=== PATIENT | male | born 1945 | race Caucasian/White ===

== ENCOUNTER 2017-10-30 07:38 | Day surgery (SDC) | payer BC, MEDICARE ==
[~2017-10-30] VITALS: Ht 170.2 cm; Wt 88.5 kg
[~2017-10-30 07:38] MED LIST: ALBU90OI INH; ALBU90OI6 INH; ASPI81CH; ATEN100; ATEN100 PO; Aspirin EC81 MG PO; CHOL10002 PO; CRUTCH4 XX; FLUT1DIS5 INH; GLIP10 PO; GLIP10ER PO; GLUC500 PO; Keflex500 MG PO; Levaquin750 MG PO; METF500 PO; METF500C PO; Norco 5-325 Ta1 EACH PO; PIOG15 PO; Prednisone20 MG PO; SERT100 PO; SIMV10 PO; TAMS.4ER PO; TIOT18 INH; Zoloft100 MG PO
== END 2017-10-30 09:48 | disposition home or self-care (01) ==
LOC: ORSCMMR 07:38 → ORD 08:30 → ORSCMMR 08:30
PROVIDERS: Internal Medicine Gastroenterology
PROC: 0DBL8ZX Excision of Transverse Colon, Via Natural or Artificial Opening Endoscopic, Diagnostic (ICD-10-PCS; principal; 2017-10-30 08:30)
PROC: 0DBK8ZX Excision of Ascending Colon, Via Natural or Artificial Opening Endoscopic, Diagnostic (ICD-10-PCS; principal; 2017-10-30 08:30)
PROC: 0DBB8ZX Excision of Ileum, Via Natural or Artificial Opening Endoscopic, Diagnostic (ICD-10-PCS; principal; 2017-10-30 08:30)
PROC: 0DBE8ZX Excision of Large Intestine, Via Natural or Artificial Opening Endoscopic, Diagnostic (ICD-10-PCS; principal; 2017-10-30 08:30)
PROC: 0DBN8ZX Excision of Sigmoid Colon, Via Natural or Artificial Opening Endoscopic, Diagnostic (ICD-10-PCS; principal; 2017-10-30 08:30)
DX: R19.7 Diarrhea, unspecified (principal); D12.3 Benign neoplasm of transverse colon; D12.2 Benign neoplasm of ascending colon; K63.5 Polyp of colon; K62.1 Rectal polyp; K57.30 Diverticulosis of large intestine without perforation or abscess without bleeding; E11.9 Type 2 diabetes mellitus without complications; J44.9 Chronic obstructive pulmonary disease, unspecified; G47.33 Obstructive sleep apnea (adult) (pediatric); E78.00 Pure hypercholesterolemia, unspecified; F32.9 Major depressive disorder, single episode, unspecified; Z79.899 Other long term (current) drug therapy; Z79.82 Long term (current) use of aspirin; Z87.891 Personal history of nicotine dependence; I10 Essential (primary) hypertension
CPT/HCPCS: 82947; 88305; J2250; J3010; J7120

== ENCOUNTER 2020-05-07 10:43 | Emergency (ER) | payer BC, MEDICARE ==
[~2020-05-07] VITALS: Ht 167.6 cm; Wt 88.0 kg
[2020-05-07 11:41] LABS: BASOPHILS ABSOLUTE AUTO 0.03 K/mm3 (0.00-0.23); BASOPHILS PERCENT AUTO 1 % (0-2); EOSINOPHILS ABSOLUTE AUTO 0.06 K/mm3 (0.00-0.68); EOSINOPHILS PERCENT AUTO 1 % (0-6); Hematocrit 37.7 % (37.0-53.0); Hemoglobin 12.4 g/dL (13.5-17.5); IMMATURE GRAN ABSOLUTE AUTO 0.01 K/mm3 (0.00-0.10); IMMATURE GRAN PERCENT AUTO 0 % (0-1); LYMPHOCYTES ABSOLUTE AUTO 0.92 K/mm3 (0.84-5.20); LYMPHOCYTES PERCENT AUTO 19 % (21-46); MONOCYTES ABSOLUTE AUTO 0.38 K/mm3 (0.16-1.47); MONOCYTES PERCENT AUTO 8 % (4-13); Mean Corpuscular HGB Conc 32.9 g/dL (31.5-36.5); Mean Corpuscular Volume 91 fL (80-100); Mean Platelet Volume 9.2 fL (9.1-12.4); NEUTROPHILS ABSOLUTE AUTO 3.47 K/mm3 (1.96-9.15); NEUTROPHILS PERCENT AUTO 71 % (41-73); Platelet Count 205 K/mm3 (150-400); RDW Coefficient Variation 13.5 % (11.7-14.2); RDW Standard Deviation 45.4 fL (35.1-46.3); Red Blood Cell Count 4.14 M/mm3 (4.30-5.90); White Blood Cell Count 4.87 K/mm3 (4.00-11.30)
[2020-05-07 11:57] LABS: Alanine Aminotransfer (ALT/SGP 21 U/L (12-78); Albumin, Blood 3.9 g/dL (3.4-5.0); Albumin/Globulin Ratio 1.2 (0.8-1.8); Alk Phos 60 U/L (50-136); Anion Gap 5 mmol/L (6-16); Aspartate Aminotrans (AST/SGOT 14 U/L (12-37); Bilirubin, Total 0.4 mg/dL (0.1-1.0); Blood Urea Nitrogen 18 mg/dL (8-24); Bun/Creatinine Ratio 20.5 (12.0-20.0); CO2, Blood 28 mmol/L (21-32); Calcium, Blood 9.1 mg/dL (8.5-10.1); Chloride, Blood 107 mmol/L (98-108); Creatinine, Blood 0.88 mg/dL (0.60-1.20); Globulin, Blood 3.2 g/dL (2.2-4.0); Glomerular Filtration Rate >60 (60-); Glucose, Blood 149 mg/dL (70-99); Potassium, Blood 4.2 mmol/L (3.5-5.5); Sodium, Blood 140 mmol/L (136-145); Total Protein, Blood 7.1 g/dL (6.4-8.2)
[2020-05-07 12:25] LABS: Source, Urine Clean Catch
[2020-05-07 12:42] LABS: Appearance, Urine Clear (Clear); Color, Urine Yellow (P-Yellow); Leukocyte Esterase, Urine Neg (Neg); Nitrite, Urine Neg (Neg); pH, Urine 6.5 (5.0-8.0)
[2020-05-07 12:43] LABS: Bacteria Not Seen /hpf; Bilirubin, Urine Neg (Neg); Blood, Urine 1+ (Neg); Glucose Qualitative, Urine Neg (Neg); Ketones, Urine Neg (Neg); Protein, Urine 2+ (Neg); Red Blood Cells, Urine 0-2 /hpf (0-2); Squamous Epithelial Cells Rare /hpf (Few); Urobilinogen, Urine NORM (Normal); White Blood Cells, Urine Not Seen /hpf (0-5)
[2020-05-07] MEDS ORDERED: Plavix75 MG PO (13:37)
== END 2020-05-07 14:00 | disposition home or self-care (01) ==
LOC: ER 10:43
PROVIDERS: Physician Assistant
DX: G45.9 Transient cerebral ischemic attack, unspecified (principal); J44.9 Chronic obstructive pulmonary disease, unspecified; E11.9 Type 2 diabetes mellitus without complications; F32.9 Major depressive disorder, single episode, unspecified; I10 Essential (primary) hypertension; Z86.73 Personal history of transient ischemic attack (TIA), and cerebral infarction without residual deficits; Z79.84 Long term (current) use of oral hypoglycemic drugs; Z79.899 Other long term (current) drug therapy; Z91.041 Radiographic dye allergy status; Z79.82 Long term (current) use of aspirin; Z87.891 Personal history of nicotine dependence
CPT/HCPCS: 36415; 70450; 80053; 81001; 85025; 93005; 93010; 99285-25

== ENCOUNTER 2021-02-22 20:30 | Emergency (ER) | payer BC, MEDICARE ==
[~2021-02-22] VITALS: Ht 170.2 cm; Wt 88.5 kg
[~2021-02-22 20:30] MED LIST changes: +Plavix75 MG PO
[2021-02-22 21:51] LABS: BASOPHILS ABSOLUTE AUTO 0.04 K/mm3 (0.00-0.23); BASOPHILS PERCENT AUTO 1 % (0-2); EOSINOPHILS PERCENT AUTO 2 % (0-6); Hematocrit 36.1 % (37.0-53.0); IMMATURE GRAN ABSOLUTE AUTO 0.02 K/mm3 (0.00-0.10); IMMATURE GRAN PERCENT AUTO 0 % (0-1); LYMPHOCYTES ABSOLUTE AUTO 0.94 K/mm3 (0.84-5.20); LYMPHOCYTES PERCENT AUTO 14 % (21-46); MONOCYTES ABSOLUTE AUTO 0.51 K/mm3 (0.16-1.47); MONOCYTES PERCENT AUTO 8 % (4-13); Mean Corpuscular HGB 30.4 pg (26.0-34.0); Mean Corpuscular HGB Conc 33.2 g/dL (31.5-36.5); Mean Corpuscular Volume 91 fL (80-100); NEUTROPHILS ABSOLUTE AUTO 5.18 K/mm3 (1.96-9.15); NEUTROPHILS PERCENT AUTO 76 % (41-73); Platelet Count 196 K/mm3 (150-400); RDW Coefficient Variation 12.8 % (11.7-14.2); Red Blood Cell Count 3.95 M/mm3 (4.30-5.90); White Blood Cell Count 6.79 K/mm3 (4.00-11.30)
[2021-02-22 22:34] LABS: Alanine Aminotransfer (ALT/SGP 22 U/L (12-78); Albumin, Blood 3.7 g/dL (3.4-5.0); Albumin/Globulin Ratio 1.2 (0.8-1.8); Alk Phos 72 U/L (50-136); Anion Gap 4 mmol/L (6-16); Aspartate Aminotrans (AST/SGOT 15 U/L (12-37); Bilirubin, Total 0.4 mg/dL (0.1-1.0); Blood Urea Nitrogen 19 mg/dL (8-24); Bun/Creatinine Ratio 20.9 (12.0-20.0); CO2, Blood 28 mmol/L (21-32); Calcium, Blood 9.3 mg/dL (8.5-10.1); Chloride, Blood 109 mmol/L (98-108); Creatinine, Blood 0.91 mg/dL (0.60-1.20); Globulin, Blood 3.1 g/dL (2.2-4.0); Glomerular Filtration Rate >60 (60-); Glucose, Blood 111 mg/dL (70-99); Sodium, Blood 141 mmol/L (136-145); Total Protein, Blood 6.8 g/dL (6.4-8.2); Troponin I <0.015 ng/mL (0.000-0.040)
[2021-02-23] MEDS ORDERED: ZOLOFT100 M6 PO (01:11)
[2021-02-23] MEDS ORDERED: Zocor20 MG PO (01:12)
[2021-02-23] MEDS ORDERED: ANORO ELLIPTA1 EACH (01:13)
[2021-02-23] MEDS ORDERED: LOSA50 PO (01:13)
[2021-02-23] MEDS ORDERED: TRULICITY1.5 MG/0.1 SC (01:14)
[2021-02-23] MEDS ORDERED: ALBU90OI INH (03:13)
== END 2021-02-23 04:33 | disposition home or self-care (01) ==
LOC: ER 20:30
PROVIDERS: Physician Assistant
DX: J44.1 Chronic obstructive pulmonary disease with (acute) exacerbation (principal); E11.9 Type 2 diabetes mellitus without complications; I10 Essential (primary) hypertension; Z99.89 Dependence on other enabling machines and devices; Z87.891 Personal history of nicotine dependence; Z91.041 Radiographic dye allergy status; Z79.899 Other long term (current) drug therapy; Z79.84 Long term (current) use of oral hypoglycemic drugs; Z79.02 Long term (current) use of antithrombotics/antiplatelets; Z79.82 Long term (current) use of aspirin
CPT/HCPCS: 71045; 80053; 83880; 84484; 85025; 93005; 93010; 94644; 94645; 99285-25; J1100

== ENCOUNTER 2021-05-18 13:03 | Observation (INO) | payer BC, MEDICARE ==
[~2021-05-18] VITALS: Ht 170.2 cm; Wt 86.2 kg
[~2021-05-18 13:03] MED LIST changes: -ALBU90OI6 INH; +ANORO ELLIPTA1 EACH; -ATEN100 PO; -Aspirin EC81 MG PO; -GLIP10ER PO; -METF500 PO; -PIOG15 PO; -TAMS.4ER PO; +TRULICITY1.5 MG/0.1 SC; +Zocor20 MG PO
[2021-05-18 13:25] LABS: BASOPHILS ABSOLUTE AUTO 0.02 K/mm3 (0.00-0.23); BASOPHILS PERCENT AUTO 0 % (0-2); EOSINOPHILS ABSOLUTE AUTO 0.05 K/mm3 (0.00-0.68); EOSINOPHILS PERCENT AUTO 1 % (0-6); Hematocrit 37.7 % (37.0-53.0); Hemoglobin 12.2 g/dL (13.5-17.5); IMMATURE GRAN ABSOLUTE AUTO 0.02 K/mm3 (0.00-0.10); IMMATURE GRAN PERCENT AUTO 0 % (0-1); LYMPHOCYTES ABSOLUTE AUTO 0.57 K/mm3 (0.84-5.20); LYMPHOCYTES PERCENT AUTO 10 % (21-46); MONOCYTES PERCENT AUTO 7 % (4-13); Mean Corpuscular HGB 29.5 pg (26.0-34.0); Mean Corpuscular HGB Conc 32.4 g/dL (31.5-36.5); Mean Corpuscular Volume 91 fL (80-100); Mean Platelet Volume 9.1 fL (9.1-12.4); NEUTROPHILS ABSOLUTE AUTO 4.75 K/mm3 (1.96-9.15); NEUTROPHILS PERCENT AUTO 82 % (41-73); Platelet Count 174 K/mm3 (150-400); RDW Coefficient Variation 14.3 % (11.7-14.2); Red Blood Cell Count 4.14 M/mm3 (4.30-5.90); White Blood Cell Count 5.81 K/mm3 (4.00-11.30)
[2021-05-18 13:44] LABS: Alanine Aminotransfer (ALT/SGP 21 U/L (12-78); Albumin, Blood 3.5 g/dL (3.4-5.0); Alk Phos 64 U/L (50-136); Anion Gap 4 mmol/L (6-16); Aspartate Aminotrans (AST/SGOT 17 U/L (12-37); Bilirubin, Total 0.5 mg/dL (0.1-1.0); Blood Urea Nitrogen 18 mg/dL (8-24); Bun/Creatinine Ratio 22.6 (12.0-20.0); CO2, Blood 30 mmol/L (21-32); Calcium, Blood 9.3 mg/dL (8.5-10.1); Chloride, Blood 104 mmol/L (98-108); Globulin, Blood 3.4 g/dL (2.2-4.0); Glomerular Filtration Rate >60 (60-); Glucose, Blood 183 mg/dL (70-99); Potassium, Blood 3.9 mmol/L (3.5-5.5); Sodium, Blood 138 mmol/L (136-145); Total Protein, Blood 6.9 g/dL (6.4-8.2); Troponin I <0.015 ng/mL (0.000-0.040)
[2021-05-19 05:44] LABS: BASOPHILS ABSOLUTE AUTO 0.04 K/mm3 (0.00-0.23); BASOPHILS PERCENT AUTO 1 % (0-2); EOSINOPHILS ABSOLUTE AUTO 0.07 K/mm3 (0.00-0.68); EOSINOPHILS PERCENT AUTO 2 % (0-6); Hematocrit 37.3 % (37.0-53.0); Hemoglobin 12.3 g/dL (13.5-17.5); IMMATURE GRAN ABSOLUTE AUTO 0.01 K/mm3 (0.00-0.10); IMMATURE GRAN PERCENT AUTO 0 % (0-1); LYMPHOCYTES ABSOLUTE AUTO 0.83 K/mm3 (0.84-5.20); LYMPHOCYTES PERCENT AUTO 21 % (21-46); MONOCYTES PERCENT AUTO 10 % (4-13); Mean Corpuscular HGB 29.1 pg (26.0-34.0); Mean Corpuscular Volume 88 fL (80-100); Mean Platelet Volume 8.8 fL (9.1-12.4); NEUTROPHILS PERCENT AUTO 66 % (41-73); Platelet Count 164 K/mm3 (150-400); RDW Coefficient Variation 14.1 % (11.7-14.2); RDW Standard Deviation 45.3 fL (35.1-46.3); Red Blood Cell Count 4.23 M/mm3 (4.30-5.90); White Blood Cell Count 3.95 K/mm3 (4.00-11.30)
[2021-05-19 06:07] LABS: Albumin, Blood 3.3 g/dL (3.4-5.0); Anion Gap 4 mmol/L (6-16); Blood Urea Nitrogen 13 mg/dL (8-24); Bun/Creatinine Ratio 17.9 (12.0-20.0); CO2, Blood 30 mmol/L (21-32); Calcium, Blood 9.5 mg/dL (8.5-10.1); Chloride, Blood 107 mmol/L (98-108); Creatinine, Blood 0.73 mg/dL (0.60-1.20); Glomerular Filtration Rate >60 (60-); Glucose, Blood 116 mg/dL (70-99); Phosphorus, Blood 3.9 mg/dL (2.5-4.9); Potassium, Blood 3.5 mmol/L (3.5-5.5); Sodium, Blood 141 mmol/L (136-145)
--- NOTE | 2021-05-19 06:29 | NUR ---
ADMISSION SUMMARY PT RECEIVED FROM ED ON STRETCHER.A&OX4. ABLE TO MAKE NEEDS KNOWN. PT IS ADMITTED FOR ACUTE LABYRINTHITIS. DENIES PAIN, N/V OR DIZINESS ON THIS SHIFT. PT ORIENTED TO ROOM, CALL LIGHT WITHIN REACH. WILL CONTINUE TO MONITOR.
[2021-05-19] MEDS ORDERED: LOSARTAN POTAS100 M1 PO (15:24)
[2021-05-19] MEDS ORDERED: ZOLOFT100 M6 PO (15:24)
[2021-05-19] MEDS ORDERED: METF500 PO (15:25)
[2021-05-19] MEDS ORDERED: ATEN100 PO (15:25)
[2021-05-19] MEDS ORDERED: TAMS.4ER PO (15:26)
[2021-05-19] MEDS ORDERED: PIOG15 PO (15:28)
[2021-05-19] MEDS ORDERED: GLIP10 PO (15:28)
[2021-05-19] MEDS ORDERED: ALBU90OI6 INH (15:28)
[2021-05-19] MEDS ORDERED: Aspirin EC81 MG PO (15:38)
[2021-05-19] MEDS ORDERED: GLUCOPHAGE1000 M1 PO (15:39)
[2021-05-19] MEDS ORDERED: ALBU2.5V5 NEB (15:41)
[2021-05-19] MEDS ORDERED: MECL25 PO (16:05)
[2021-05-19] MEDS ORDERED: ONDA4ODT MM (16:06)
== END 2021-05-19 16:51 | disposition home or self-care (01) ==
LOC: ER 13:03 → MEDS 13:04
PROVIDERS: Emergency Medicine; ADMIT Internal Medicine
DX: H83.09 Labyrinthitis, unspecified ear (principal); J44.9 Chronic obstructive pulmonary disease, unspecified; I10 Essential (primary) hypertension; G47.33 Obstructive sleep apnea (adult) (pediatric); E11.9 Type 2 diabetes mellitus without complications; F32.A Depression, unspecified; Z85.46 Personal history of malignant neoplasm of prostate; Z91.041 Radiographic dye allergy status; Z87.891 Personal history of nicotine dependence; Z79.84 Long term (current) use of oral hypoglycemic drugs
CPT/HCPCS: 36415; 70450; 70551; 71046; 80053; 80069; 82947; 84484; 85025; 93005; 93010; 97162; 99285-25; A9270

== ENCOUNTER → 2021-09-12 | Outpatient (CLI) | payer MEDICARE ==
[~2021-09-12] MED LIST changes: +ALBU2.5V5 NEB; +ALBU90OI6 INH; +ATEN100 PO; +Aspirin EC81 MG PO; +GLUCOPHAGE1000 M1 PO; +LOSARTAN POTAS100 M1 PO; +MECL25 PO; +METF500 PO; +ONDA4ODT MM; +PIOG15 PO; +TAMS.4ER PO; +ZOLOFT100 M6 PO
== END | disposition home or self-care (01) ==
LOC: LAB SHORT 09:47 → LAB 09:47
DX: R05.9 Cough, unspecified (principal)
CPT/HCPCS: 87070; 87077; 87185; 87205

== ENCOUNTER 2023-11-01 17:05 | Emergency (ER) | payer OTHER, MEDICARE ==
[~2023-11-01] VITALS: Ht 172.7 cm; Wt 93.0 kg
[~2023-11-01 17:05] MED LIST changes: +ALLEGRA ALLERG180 MG PO; +TRELEGY ELLIPT1 EACH IH; +TRULICITY1.5 MG/0.1 SQ; +ZOCOR20 MG
[2023-11-01 17:40] LABS: BASOPHILS ABSOLUTE AUTO 0.02 K/mm3 (0.00-0.23); BASOPHILS PERCENT AUTO 0 % (0-2); EOSINOPHILS ABSOLUTE AUTO 0.04 K/mm3 (0.00-0.68); EOSINOPHILS PERCENT AUTO 1 % (0-6); Hematocrit 38.2 % (37.0-53.0); Hemoglobin 12.6 g/dL (13.5-17.5); IMMATURE GRAN ABSOLUTE AUTO 0.02 K/mm3 (0.00-0.10); IMMATURE GRAN PERCENT AUTO 0 % (0-1); LYMPHOCYTES ABSOLUTE AUTO 0.33 K/mm3 (0.84-5.20); LYMPHOCYTES PERCENT AUTO 5 % (21-46); MONOCYTES ABSOLUTE AUTO 0.73 K/mm3 (0.16-1.47); MONOCYTES PERCENT AUTO 10 % (4-13); Mean Corpuscular HGB 28.9 pg (26.0-34.0); Mean Corpuscular Volume 88 fL (80-100); Mean Platelet Volume 8.8 fL (9.1-12.4); NEUTROPHILS ABSOLUTE AUTO 6.01 K/mm3 (1.96-9.15); NEUTROPHILS PERCENT AUTO 84 % (41-73); Platelet Count 183 K/mm3 (150-400); RDW Coefficient Variation 13.8 % (11.7-14.2); RDW Standard Deviation 44.6 fL (35.1-46.3); Red Blood Cell Count 4.36 M/mm3 (4.30-5.90); White Blood Cell Count 7.15 K/mm3 (4.00-11.30)
[2023-11-01 17:57] LABS: Albumin/Globulin Ratio 1.1 (0.8-1.8); Bilirubin, Total 0.6 mg/dL (0.1-1.0); Bun/Creatinine Ratio 18.9 (12.0-20.0); Calcium, Blood 10.1 mg/dL (8.5-10.1); Creatinine, Blood 0.95 mg/dL (0.60-1.20); Globulin, Blood 3.8 g/dL (2.2-4.0); Potassium, Blood 3.6 mmol/L (3.5-5.5); Total Protein, Blood 7.8 g/dL (6.4-8.2)
[2023-11-01] MEDS ORDERED: TRIDERM28.4 GM TOP (18:18)
[2023-11-01] MEDS ORDERED: OZEMPIC0.25 MG/02 SQ (18:19)
[2023-11-01] MEDS ORDERED: TAMSULOSIN HCL0.4 M1 PO (18:19)
[2023-11-01] MEDS ORDERED: ZOLOFT10013 PO (18:19)
[2023-11-01] MEDS ORDERED: [UNRECOGNIZED DRUG - OTHER] (18:19)
[2023-11-01] MEDS ORDERED: LEVEMIR (18:19)
[2023-11-01] MEDS ORDERED: ATEN100 PO (18:19)
[2023-11-01 19:21] VITALS: BP 152/74
== END 2023-11-01 19:11 | disposition home or self-care (01) ==
LOC: ER 17:05
PROVIDERS: Emergency Medicine
DX: R41.0 Disorientation, unspecified (principal); E11.9 Type 2 diabetes mellitus without complications; Z87.891 Personal history of nicotine dependence; J44.9 Chronic obstructive pulmonary disease, unspecified; G47.30 Sleep apnea, unspecified; I10 Essential (primary) hypertension; E78.5 Hyperlipidemia, unspecified; Z79.84 Long term (current) use of oral hypoglycemic drugs; Z79.82 Long term (current) use of aspirin; Z79.51 Long term (current) use of inhaled steroids; Z79.899 Other long term (current) drug therapy; Z91.041 Radiographic dye allergy status
CPT/HCPCS: 70450; 80053; 85025; 99285-25

== ENCOUNTER 2024-09-15 07:18 | Day surgery (SDC) | payer OTHER, MEDICARE ==
[~2024-09-15] VITALS: Ht 168 cm; Wt 88.0 kg
[~2024-09-15 07:18] MED LIST changes: -ALBU90OI6 INH; +GLIP5 PO; +LEVEMIR; +LOSA50 PO; +Lactated Ringer's 1,000 ML IV SCH; +OZEMPIC0.25 MG/02 SQ; +TRIDERM28.4 GM TOP; +ZOCOR20 MG PO; +ZOLOFT10013 PO; +[UNRECOGNIZED DRUG - OTHER]
[2024-09-15] MEDS ORDERED: propofoL 60 ML IV ONE (07:31)
[2024-09-15 07:46] VITALS: BP 166/85
[2024-09-15] MEDS ORDERED: ASPI81CH PO (07:48)
--- NOTE | 2024-09-15 07:57 | NUR ---
09/15/24 0757 Thang Asencio History, Chart, Medications and Allergies reviewed before start of procedure.MONITOR INTACT WITH CONTINUOUS PULSE OXIMETRY, CONTINUOUS END TITAL CO2, 3-LEAD EKG AND INTERMITTENT BLOOD PRESSURE.3-LEAD EKG REVIEWED WITH PHYSICIAN PRIOR TO START OF PROCEDURE.O2 VIA POM INTACT THROUGHOUT SEDATION/PROCEDURE.See Anesthesia record.
[2024-09-15 08:30] VITALS: BP 104/64
[2024-09-15 08:45] VITALS: BP 149/78
--- NOTE | 2024-09-15 09:02 | NUR ---
DISCHARGE NOTE Patient up to Ambulate independently. Gait steady. Discharge instructions reviewed with patient. Patient verbalizes understanding. Copy given to patient to take home. Lungs clear T/O to Auscultation. Discharged via wheelchair to private car for ride home.
== END 2024-09-15 23:00 | disposition home or self-care (01) ==
LOC: ORSCMMR 07:18 → ORD 09:00 → ORSCMMR 23:00
PROVIDERS: Internal Medicine Gastroenterology
PROC: 0DBN8ZX Excision of Sigmoid Colon, Via Natural or Artificial Opening Endoscopic, Diagnostic (ICD-10-PCS; principal; 2024-09-15 09:00)
DX: Z12.11 Encounter for screening for malignant neoplasm of colon (principal); Z86.0100 Personal history of colon polyps, unspecified; K63.5 Polyp of colon; E11.9 Type 2 diabetes mellitus without complications; J44.9 Chronic obstructive pulmonary disease, unspecified; G47.33 Obstructive sleep apnea (adult) (pediatric); I10 Essential (primary) hypertension; F32.A Depression, unspecified; Z79.4 Long term (current) use of insulin; Z79.899 Other long term (current) drug therapy; Z79.85 Long-term (current) use of injectable non-insulin antidiabetic drugs; Z87.891 Personal history of nicotine dependence
CPT/HCPCS: 82947; 88305; J2704; J7120

== ENCOUNTER 2025-05-18 15:02 | Emergency (ER) | payer OTHER, MEDICARE ==
[~2025-05-18] VITALS: Ht 170.2 cm; Wt 83.9 kg
[~2025-05-18 15:02] MED LIST changes: +ASPI81CH PO; -Lactated Ringer's 1,000 ML IV SCH
[2025-05-18 15:56] LABS: BASOPHILS ABSOLUTE AUTO 0.03 K/mm3 (0.00-0.23); BASOPHILS PERCENT AUTO 0 % (0-2); EOSINOPHILS ABSOLUTE AUTO 0.05 K/mm3 (0.00-0.68); EOSINOPHILS PERCENT AUTO 1 % (0-6); Hematocrit 35.8 % (37.0-53.0); Hemoglobin 12.5 g/dL (13.5-17.5); IMMATURE GRAN ABSOLUTE AUTO 0.05 K/mm3 (0.00-0.10); IMMATURE GRAN PERCENT AUTO 1 % (0-1); LYMPHOCYTES ABSOLUTE AUTO 0.86 K/mm3 (0.84-5.20); LYMPHOCYTES PERCENT AUTO 9 % (21-46); MONOCYTES ABSOLUTE AUTO 0.75 K/mm3 (0.16-1.47); MONOCYTES PERCENT AUTO 8 % (4-13); Mean Corpuscular HGB Conc 34.9 g/dL (31.5-36.5); Mean Corpuscular Volume 85 fL (80-100); NEUTROPHILS ABSOLUTE AUTO 8.23 K/mm3 (1.96-9.15); NEUTROPHILS PERCENT AUTO 83 % (41-73); NRBC ABSOLUTE 0.00 K/mm3 (0.00-0.02); NRBC Auto 0.0 /100 WBC (0.0-0.2); Platelet Count 162 K/mm3 (150-400); RDW Coefficient Variation 13.5 % (11.7-14.2); RDW Standard Deviation 42.2 fL (35.1-46.3)
[2025-05-18 16:14] LABS: Alanine Aminotransfer (ALT/SGP 20.0 U/L (12-78); Albumin, Blood 3.6 g/dL (3.4-5.0); Albumin/Globulin Ratio 1.0 (0.8-1.8); Anion Gap 10.0 mmol/L (3-11); Aspartate Aminotrans (AST/SGOT 11.0 U/L (12-37); Bilirubin, Total 1.3 mg/dL (0.1-1.0); Blood Urea Nitrogen 24.0 mg/dL (8-24); CO2, Blood 29.0 mmol/L (21-32); Calcium, Blood 9.2 mg/dL (8.5-10.1); Chloride, Blood 96.0 mmol/L (98-108); Creatinine, Blood 1.0 mg/dL (0.60-1.20); Globulin, Blood 3.7 g/dL (2.2-4.0); Glucose, Blood 469.0 mg/dL (70-99); Potassium, Blood 3.5 mmol/L (3.5-5.5); Sodium, Blood 131.0 mmol/L (136-145); Total Protein, Blood 7.3 g/dL (6.4-8.2)
[2025-05-18 16:59] VITALS: BP 127/63
[2025-05-18] MEDS ORDERED: AMOCLA875 PO (17:19)
== END 2025-05-18 17:10 | disposition home or self-care (01) ==
LOC: ER 15:02
PROVIDERS: Physician Assistant
DX: J18.9 Pneumonia, unspecified organism (principal); J44.0 Chronic obstructive pulmonary disease with (acute) lower respiratory infection; E11.9 Type 2 diabetes mellitus without complications; Z87.891 Personal history of nicotine dependence; Z59.89 Other problems related to housing and economic circumstances; Z79.84 Long term (current) use of oral hypoglycemic drugs; Z79.85 Long-term (current) use of injectable non-insulin antidiabetic drugs; Z79.82 Long term (current) use of aspirin; Z79.899 Other long term (current) drug therapy
CPT/HCPCS: 71046; 80053; 83690; 85025; 93005; 93010; 99285-25